=== PATIENT | female | born 1975 | race Caucasian/White ===

== ENCOUNTER → 2018-07-04 | Outpatient (CLI) | payer SELFPAY ==
--- NOTE | 2018-07-04 16:13 | RADIOLOGY REPORT (SQ) ---
EXAM DESCRIPTION: CT HEAD COMBO COMPLETED DATE/TIME: 07/04/2018 2:35 pm REASON FOR STUDY: LEFT BREAST CANCER C50.412 MALIG NEOPLASM OF UPPER-OUTER QUADRANT OF LEFT FEMAL COMPARISON: None. TECHNIQUE: Axial images acquired through the brain without and with intravenous contrast. Images re viewed with bone, brain and subdural windows. Additional sagittal and coronal reconstructions were g enerated. Images stored on PACS. All CT scanners at this facility use dose modulation, iterative reconstruction, and/or weight based d osing when appropriate to reduce radiation dose to as low as reasonably achievable (ALARA). [facility]: Dose Right [facility]: CareDose [facility]: Dose Right [facility]: Teradose 4D [facility]: FortaTrust CONTRAST TYPE AND DOSE: contrast/concentration: Isovue 350.00 mg/ml; Total Contrast Delivered: 50.0 ml; Total Saline Delivered: 55.0 ml RENAL FUNCTION: None required. The patient is less than 50 years old. RADIATION DOSE: CT Rad equipment meets quality standard of care and radiation dose reduction techniq ues were employed. CTDIvol: 48.7 - 48.7 mGy. DLP: 2008 mGy-cm.. LIMITATIONS: None. FINDINGS: VENTRICLES: Normal size and contour. CEREBRUM: No masses. No hemorrhage. No midline shift. Normal thomas/white matter differentiation. No ev idence for acute infarction. No enhancing lesions. CEREBELLUM: No masses. No hemorrhage. No alteration of density. No evidence for acute infarction. No enhancing lesions. EXTRA-AXIAL SPACES: No fluid collections. No enhancing lesions. ORBITS AND GLOBE: No intra- or extraconal masses. Normal contour of globe without masses. CALVARIUM: No fracture. PARANASAL SINUSES: No fluid or mucosal thickening. SOFT TISSUES: No mass or hematoma. OTHER: No other significant finding. IMPRESSION: NORMAL BRAIN CT WITHOUT AND WITH CONTRAST. EVIDENCE OF ACUTE STROKE: NO. TECHNICAL DOCUMENTATION: JOB ID: [id number] Quality ID # [id number]: Final reports with documentation of one or more dose reduction techniques (e.g., Au tomated exposure control, adjustment of the mA and/or kV according to patient size, use of iterative reconstruction technique) 2010 [employer]- All Rights Reserved Reading location - IP/workstation name: [email or web address]
== END ==
LOC: RAD 13:52
PROVIDERS: ATTEND Internal Medicine Hematology & Oncology
DX: C50.412 Malignant neoplasm of upper-outer quadrant of left female breast (principal)
CPT/HCPCS: 70470

== ENCOUNTER 2018-07-12 10:44 | Day surgery (SDC) | payer SELFPAY ==
[2018-07-08 11:09] LABS: HEMATOCRIT 41.8 % (36.0-47.0); HEMOGLOBIN 14.8 g/dL (12.0-15.5); MEAN CORPUSCULAR HEMOGLOBIN 30.6 pg (27.0-33.4); MEAN CORPUSCULAR HGB CONC 35.3 g/dL (32.0-36.0); MEAN CORPUSCULAR VOLUME 87 fl (80-97); PLATELET COUNT 143 10^3/uL (150-450); RED BLOOD COUNT 4.81 10^6/uL (3.72-5.28)
[2018-07-08 11:39] LABS: ANION GAP 12 (5-19); BLOOD UREA NITROGEN 6 mg/dL (7-20); CALCIUM 9.1 mg/dL (8.4-10.2); CARBON DIOXIDE 27 mmol/L (22-30); CHLORIDE 103 mmol/L (98-107); GLUCOSE 101 mg/dL (75-110); SODIUM 141.9 mmol/L (137-145)
[~2018-07-12 10:44] MED LIST: CEFAZOLIN 1 GM/D5W RTU 1 GM/50 ML RTUPB IV ONE; CEFAZOLIN 1 GM/D5W RTU 1 GM/50 ML RTUPB IV PRN; LACTATED RINGERS 1000 ML IV PRN; LIDOCAINE 4% TRANSPARENT DRESSING 5 GM KIT ONE; LIDOCAINE 4% TRANSPARENT DRESSING 5 GM KIT TP PRN; SUCCINYLCHOLINE CHLORIDE INJ 200 MG/10 ML VIAL ONE
--- NOTE | 2018-07-12 12:38 | RADIOLOGY REPORT (SQ) ---
EXAM DESCRIPTION: NM LYMPHATICS/LYMPH GLANDS COMPLETED DATE/TIME: 07/12/2018 12:26 pm REASON FOR STUDY: BREAST CANCER C50.912 MALIGNANT NEOPLASM OF UNSPECIFIED SITE OF LEFT FEMAL Z80.3 FAMILY HISTORY OF MALIGNANT NEOPLASM OF BREAST COMPARISON: None. RADIONUCLIDE AND DOSE: 612 microcuries TC-99m tilmanocept - [employer]. The route of agent administration: Subcutaneous in the skin. TECHNIQUE: The skin of the left breast was prepped in sterile fashion. The radiopharmaceutical was administered in equally divided doses in the periareolar breast. LIMITATIONS: None. FINDINGS: Images demonstrate activity at the injection site. There is also activity near the left a xilla secondary to a sentinel lymph node. IMPRESSION: ADMINISTRATION OF RADIOPHARMACEUTICAL FOR SENTINEL LYMPH NODE EVALUATION. TECHNICAL DOCUMENTATION: JOB ID: [id number] [employer]- All Rights Reserved Reading location - IP/workstation name: [email or web address]
[2018-07-12] MEDS ORDERED: SCOPOLAMINE HYDROBROMIDE 1.5 MG PATCH.TD72 ONE (13:03)
[2018-07-12] MEDS ORDERED: ALBUTEROL SULFATE 0.083% NEB 2.5 MG/3 ML AMPUL NEB ONE (13:12)
[2018-07-12] MEDS ORDERED: RINGERS SOLUTION,LACTATED 1,000 ML IV ONE (13:15)
[2018-07-12] MEDS ORDERED: MIDAZOLAM 2 MG/2 ML INJ ONE ×2 (13:49→14:17)
[2018-07-12] MEDS ORDERED: EPHEDRINE SULFATE INJ 50 MG/1 ML AMPULE ONE (14:17)
[2018-07-12] MEDS ORDERED: DEXAMETHASONE SOD PHOSPHATE INJ 4 MG/1 ML VIAL ONE (14:17)
[2018-07-12] MEDS ORDERED: ACETAMINOPHEN 1,000 MG/100 ML RTUPB IV ONE (14:17)
[2018-07-12] MEDS ORDERED: ONDANSETRON HCL INJ/PF 4 MG/2 ML SDV ONE (14:17)
[2018-07-12] MEDS ORDERED: PROPOFOL INJ 200 MG/20 ML VIAL IV ONE (14:17)
[2018-07-12] MEDS ORDERED: FENTANYL CITRATE INJ/PF 100 MCG/2 ML AMPUL ONE (14:17)
[2018-07-12] MEDS: LIDOCAINE 1%/EPINEPHRINE INJ 20 ML VIAL ONE ×2 (14:40→15:19)
[2018-07-12] MEDS: MICROFIBRILLAR COLLAGEN 1 GM PACK ONE ×2 (14:40→15:19)
[2018-07-12] MEDS: METHYLENE BLUE 50 MG/10 ML AMPULE ONE ×2 (14:41→15:19)
[2018-07-12] MEDS ORDERED: DIPHENHYDRAMINE HCL 50 MG/ML VIAL IV PRN (15:24)
[2018-07-12] MEDS ORDERED: OXYCODONE-ACETAMINOPHEN 5-325 MG TABLET PO PRN ×2 (15:24)
[2018-07-12] MEDS ORDERED: FENTANYL CITRATE INJ/PF 100 MCG/2 ML AMPUL IV PRN ×3 (15:24)
[2018-07-12] MEDS ORDERED: MEPERIDINE HCL/PF INJ 25 MG/1 ML DISP.SYRIN IV PRN (15:24)
[2018-07-12] MEDS ORDERED: PROMETHAZINE HCL INJ 25 MG/1 ML VIAL IV PRN ×2 (15:24)
[2018-07-12] MEDS ORDERED: ONDANSETRON HCL INJ/PF 4 MG/2 ML SDV IV PRN (15:24)
[2018-07-12] MEDS: FENTANYL CITRATE INJ/PF 100 MCG/2 ML AMPUL ONE ×2 (16:52→16:57)
--- NOTE | 2018-07-12 16:55 | Discharge Summary ---
Discharge Summary (SDC) - Discharge Final Diagnosis: Triple negative left breast carcinoma Date of Surgery: 07/12/18 Discharge Date: 07/12/18 Condition: Good Treatment or Instructions: Wear supportive bra; prescription on chart for pain medication; may shower in 48 hours; follow-up with Dr. [facility] in 1-2 weeks. Referrals: VETO PUCKETT MD [Primary Care Provider] - Discharge Diet: As Tolerated Discharge Activity: Activity As Tolerated Home Care Assistance: None Needed Report the Following to Your Physician Immediately: Shortness of Breath, Increase in Pain, Fever over 101 Degrees
[2018-07-12] MEDS: HYDROMORPHONE HCL INJ/PF 2 MG/ML AMPULE ONE ×6 (17:00→17:25)
--- NOTE | 2018-07-12 17:03 | Operative Report ---
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 [place] lymph node biopsy left axilla 2. 2. Ultrasound directed left breast lumpectomy including anterior margin sent separately. 3. Interpretation of intraoperative specimen radiograph SURGEON: LENA LARIOS ANESTHESIA: GA TISSUE REMOVED OR ALTERED: [place] lymph nodes left axilla x2; left breast lump with tumor and clip marker; anterior lumpectomy margin COMPLICATIONS: None ESTIMATED BLOOD LOSS: Scant INTRAOPERATIVE FINDINGS: See below PROCEDURE: The patient was seen in the preop holding area after undergoing lymphoscintigraphy of the left axilla. She was found to have increased activity in the left axilla by bedside neoprobe scanning. She was taken to the main operating room where general anesthesia was induced. Left arm was abducted. As part of the dual mapping technique, we injected 2-1/ 2 cc of dilute methylene blue into the left breast at the o'clock position areolar border. Left breast was massaged. The left breast and left axilla were prepped and draped in sterile fashion. Surgical plan surgical timeout were conducted. Ultrasonography of the left breast confirmed the well-circumscribed 2 cm tumor in the upper outer quadrant of the left breast, approximately 3-4 cm from the nipple at the 2 o'clock position. Clip marker retained within the tumor. We proceeded with sentinel lymph node biopsy first. Skin was Maren times 1% plain lidocaine, 3 cm incision was made in the low axilla and sentinel node harvesting executed. 2 sentinel lymph nodes were removed both level 1 both hot and blue. The first lymph node had an in vivo count of 15,426 and an ex vivo count of 8814. A sentinel hot blue lymph node with associated non-hot but blue lymph node was excised with an in vivo count of 3284 and an ex vivo count of 2925. Background counts were negligible. We felt the axillary sentinel lymph node portion of the procedure was complete. We planned our incision for left breast lumpectomy using ultrasound guidance. Skin was Maren times 1% plain lidocaine, a 4+ centimeter incision was made over the palpable mass, and a reasonable sized lumpectomy specimen was taken from just under the skin all the way down to the deep breast tissue using intraoperative ultrasonography real-time as a guide to the dissection. The lumpectomy specimen was removed from the left breast, oriented with a short suture in the superior position and a long suture in the lateral position. Imaged with the specimen radiograph machine in the operating room and found to contain the tumor, and the clip. Of note radiology had gone home for the day; pathology had gone home for the day. I therefore felt that given the proximity of the tumor to the anterior skin surface, that excising the initial lumpectomy incision, with a small portion of cutaneous tissue would be appropriate as an anterior margin. This in fact was affected using a #15 blade. This was essentially a [place] tribe of skin. It was oriented on a blue pad with the lateral margin marked laterally and the medial margin marked medially. Skin was oriented in a couple direction consistent with the vertical lumpectomy made on the patient. All specimens were sent for permanent analysis. Wounds checked for hemostasis, and there was no need for cauterization. Avitene was placed in the recesses of both wounds and wounds closed with 3-0 Vicryl, benzoin and Steri-Strips. Patient tolerated procedure well, extubated, taken recovery room stable condition.
[2018-07-12] MEDS ORDERED: KETOROLAC TROMETHAMINE INJ/PF 30 MG/1 ML SDV ONE (17:49)
[2018-07-12] MEDS ORDERED: OXYCODONE-ACETAMINOPHEN 5-325 MG TABLET ONE (18:30)
[2018-07-12 20:27] VITALS: BP 114/72
--- NOTE | 2018-07-15 15:30 | RADIOLOGY REPORT (SQ) ---
EXAM DESCRIPTION: BREAST SPECIMEN COMPLETED DATE/TIME: 07/12/2018 5:06 pm REASON FOR STUDY: LEFT BREAST LUMPECTOMY C50.912 MALIGNANT NEOPLASM OF UNSPECIFIED SITE OF LEFT FEM AL Z80.3 FAMILY HISTORY OF MALIGNANT NEOPLASM OF BREAST COMPARISON: None. TECHNIQUE: Specimen radiograph from breast procedure performed in the operating room. LIMITATIONS: None. FINDINGS: Specimen radiograph from breast procedure performed in the operating room. Please see procedure note for details and final pathology. IMPRESSION: Specimen radiograph. TECHNICAL DOCUMENTATION: JOB ID: [id number] Reading location - IP/workstation name: [email or web address]
== END 2018-07-12 19:40 | disposition home or self-care (01) ==
LOC: OROUT 10:44
PROVIDERS: ATTEND Surgery
DX: C50.912 Malignant neoplasm of unspecified site of left female breast (principal); Z80.3 Family history of malignant neoplasm of breast; J45.909 Unspecified asthma, uncomplicated; K21.9 Gastro-esophageal reflux disease without esophagitis; K44.9 Diaphragmatic hernia without obstruction or gangrene; E03.9 Hypothyroidism, unspecified; R63.4 Abnormal weight loss; B19.20 Unspecified viral hepatitis C without hepatic coma; Z79.51 Long term (current) use of inhaled steroids; Z79.4 Long term (current) use of insulin; Z88.8 Allergy status to other drugs, medicaments and biological substances; Z88.5 Allergy status to narcotic agent; Z01.818 Encounter for other preprocedural examination
CPT/HCPCS: 36415; 85027; 80048; 88342 ×2; 88305 ×2; 88307 ×2; 78195; 94640; 76098; 19301; 38500; A9520; J2250; J0690; J1100; J3010; J3490 ×3; J1885; J1170; J0330; J2405; J2704; J0131; Q9968; 400

== ENCOUNTER 2018-07-21 13:31 | Emergency (ER) | payer SELFPAY ==
[2018-07-21 13:48] VITALS: BP 128/86
== END 2018-07-21 16:08 | disposition left against medical advice (07) ==
LOC: ER 13:31
DX: Z53.21 Procedure and treatment not carried out due to patient leaving prior to being seen by health care provider (principal)

== ENCOUNTER 2018-08-07 06:45 | Day surgery (SDC) | payer MEDICAID ==
[2018-08-07] MEDS ORDERED: CEFAZOLIN 1 GM/D5W RTU 1 GM/50 ML RTUPB IV ONE (06:59)
[2018-08-07] MEDS ORDERED: ACETAMINOPHEN 325 MG TABLET PO PRN (07:06)
[2018-08-07 07:24] LABS: HEMATOCRIT 40.5 % (36.0-47.0); HEMOGLOBIN 14.5 g/dL (12.0-15.5); MEAN CORPUSCULAR HEMOGLOBIN 30.7 pg (27.0-33.4); MEAN CORPUSCULAR HGB CONC 35.8 g/dL (32.0-36.0); MEAN CORPUSCULAR VOLUME 86 fl (80-97); PLATELET COUNT 153 10^3/uL (150-450); RED BLOOD COUNT 4.73 10^6/uL (3.72-5.28); RED CELL DISTRIBUTION WIDTH 12.8 % (11.5-14.0)
[2018-08-07] MEDS ORDERED: LIDOCAINE 1%/EPINEPHRINE INJ 20 ML VIAL ONE (08:36)
[2018-08-07] MEDS ORDERED: MIDAZOLAM 2 MG/2 ML INJ ONE (08:39)
[2018-08-07] MEDS ORDERED: FENTANYL CITRATE INJ/PF 100 MCG/2 ML AMPUL ONE (08:39)
[2018-08-07] MEDS ORDERED: KETOROLAC TROMETHAMINE 60 MG/2 ML SDV ONE (08:39)
[2018-08-07] MEDS ORDERED: PROPOFOL INJ 200 MG/20 ML VIAL IV ONE (08:40)
[2018-08-07] MEDS ORDERED: ACETAMINOPHEN 1,000 MG/100 ML RTUPB IV ONE (08:40)
[2018-08-07] MEDS ORDERED: ONDANSETRON HCL INJ/PF 4 MG/2 ML SDV ONE (08:40)
[2018-08-07] MEDS ORDERED: FENTANYL CITRATE INJ/PF 100 MCG/2 ML AMPUL IV PRN ×3 (09:12)
[2018-08-07] MEDS ORDERED: PROMETHAZINE HCL INJ 25 MG/1 ML VIAL IV PRN ×2 (09:12)
[2018-08-07] MEDS ORDERED: OXYCODONE-ACETAMINOPHEN 5-325 MG TABLET PO PRN ×2 (09:12)
[2018-08-07] MEDS ORDERED: DIPHENHYDRAMINE HCL 50 MG/ML VIAL IV PRN (09:12)
[2018-08-07] MEDS ORDERED: ONDANSETRON HCL INJ/PF 4 MG/2 ML SDV IV PRN (09:12)
[2018-08-07] MEDS ORDERED: MEPERIDINE HCL/PF INJ 25 MG/1 ML DISP.SYRIN IV PRN (09:12)
[2018-08-07] MEDS ORDERED: MEPERIDINE HCL/PF INJ 25 MG/1 ML DISP.SYRIN ONE (09:58)
--- NOTE | 2018-08-07 09:58 | Discharge Summary ---
Discharge Summary (SDC) - Discharge Final Diagnosis: Left breast cancer Date of Surgery: 08/07/18 Discharge Date: 08/07/18 Condition: Stable Treatment or Instructions: PLAN: Wound Care: -You may shower in 48 hours. Leave steri strips (paper bandaids) intact until they fall off on their own. Do not scrub area. Allow warm water/soap to wash over area, pat dry and cover if needed. Pain Management: -You may take Toradol 10mg one pill by mouth every six hours as needed for pain. Follow Up: - You may follow up at [facility] in 7-10 days for evaluation. Call clinic or go to ER if you experience swelling in your neck, difficulty breathing , foul-smelling drainage, or redness surrounding incision site. Call clinic sooner with questions/concerns. Prescriptions: Ketorolac Tromethamine [Toradol 10 mg Tablet] 10 mg PO Q6HP PRN #20 tablet PRN Reason: Referrals: VETO PUCKETT MD [Primary Care Provider] - Discharge Diet: As Tolerated Discharge Activity: Activity As Tolerated Report the Following to Your Physician Immediately: Shortness of Breath, Increase in Pain, Unusual Bleeding, Redness, Swelling, Warmth, Drainage-Foul Smelling
[2018-08-07] MEDS ORDERED: KETOROLAC TROMETHAMINE 10 MG TABLET PO PRN (09:59)
--- NOTE | 2018-08-07 10:10 | Operative Report ---
Operative Report DATE OF SURGERY: 08/07/18 PREOPERATIVE DIAGNOSIS: Triple negative left breast carcinoma, status post left breast lumpectomy and sentinel lymph node biopsy POSTOPERATIVE DIAGNOSIS: Same OPERATION: 1. Focused ultrasound of the neck. 2. Ultrasound directed insertion of single-lumen Vmevfm-g-Zenq catheter right subclavian position. 3. Interpretation of intraoperative fluoroscopy. SURGEON: LENA GR BALL ENDER: FERNANDO TREJO ANESTHESIA: LMAC TISSUE REMOVED OR ALTERED: Scant COMPLICATIONS: None ESTIMATED BLOOD LOSS: 20 cc INTRAOPERATIVE FINDINGS: See below PROCEDURE: The patient was taken from the preop holding area the main operating room where LMAC anesthesia was induced. Arms were tucked at the side, neck and head externally rotated to the left side. The right neck chest and axilla were prepped and draped in sterile fashion. Surgical plan surgical timeout were conducted. Using real-time ultrasound as a guide, the right internal jugular vein was identified, found to be compressible suitable for cannulation. Overlying skin was anesthetized with 1% plain lidocaine. A small incision was made with a #15 blade, and under fluoroscopic guidance, a micro needle and wire was threaded into the vessel. The micro wire did not advance in the usual fashion. We threaded the micro-introducer dilator and sheath over the micro wire and the microwire removed and the 0.035 inch guidewire inserted into the sheath. During this transition, it was apparent that the blood coming from around the wire was arterial, and therefore the procedure was aborted. The wire and sheath were removed uneventfully and gentle pressure held. During this time the patient's peripheral IV access early failed. Anesthesia had to manipulate the Hep-Lock to reestablish successful IV access which was accomplished. Appropriate level of sedation was again achieved. There is no evidence of hematoma in the neck. We felt that we could proceed as planned again accessing the right neck. Using real-time ultrasound again as a guide, a second attempt was made to cannulate the right internal jugular vein. This was successful with the micro needle and wire. A suitable site for placement of port was chosen in the right subclavian position. Skin was anesthetized with 1% plain lidocaine. A 3 cm incision was made with a knife, port pocket developed large enough to accommodate a single-chamber port. Catheter was then trimmed the appropriate length, tunneled between the 2 incisions, attached to the port along with the plastic ring. Under fluoroscopic guidance, real-time, the prone needle was switched over to a conventional 0.030 inch guidewire using the micro-introducer sheath. We now threaded over the guidewire a 9 [place] dilator introducer sheath. Guidewire dilator removed, catheter threaded into the sheath, strip away sheath removed leaving the catheter in good position. The tip of the catheter was in the proximal superior vena cava. Is no kinking of the catheter at the neck. We aspirated and flushed the Iucepd-s-Nvho chamber with heparinized saline. There is no evidence of ectopy or swelling of the neck. Sponge and needle counts are correct. Wounds were felt to be suitable for closure and this was affected using 3-0 Vicryl suture. Sterile dressings were applied with benzoin and Steri-Strips Patient tolerated procedure well. She was taken to recovery in stable condition. Portable x-ray pending time dictation. The physician geriatric nurse assistant, Ms. Frias, provided assistance during this case by: Assisting with retracting tissue, instillation of local anesthesia and closure of skin incisions.
--- NOTE | 2018-08-07 10:46 | RADIOLOGY REPORT (SQ) ---
EXAM DESCRIPTION: CHEST SINGLE VIEW COMPLETED DATE/TIME: 08/07/2018 10:20 am REASON FOR STUDY: Port placement COMPARISON: None. EXAM PARAMETERS: NUMBER OF VIEWS: One view. TECHNIQUE: Single frontal radiographic view of the chest acquired. RADIATION DOSE: NA LIMITATIONS: None. FINDINGS: LUNGS AND PLEURA: No opacities, masses or pneumothorax. No pleural effusion. MEDIASTINUM AND HILAR STRUCTURES: No masses. Contour normal. HEART AND VASCULAR STRUCTURES: Heart normal in size. Normal vasculature. BONES: No acute findings. HARDWARE: Right-sided Port-A-Cath is identified with its tip the level of the superior vena cava P OTHER: No other significant finding. IMPRESSION: Right-sided Port-A-Cath with its tip at the level of the superior vena cava. No pneumot horax is seen. Other findings as noted above TECHNICAL DOCUMENTATION: JOB ID: [id number] [employer]- All Rights Reserved Reading location - IP/workstation name: [email or web address]
--- NOTE | 2018-08-07 10:49 | RADIOLOGY REPORT (SQ) ---
EXAM DESCRIPTION: FLUORO/CV PLACEMENT COMPLETED DATE/TIME: 08/07/2018 10:37 am REASON FOR STUDY: PORTACATH PLCMT RT SIDE ASST WITH FLUORO IN OR C50.912 MALIGNANT NEOPLASM OF UNSP ECIFIED SITE OF LEFT FEMAL COMPARISON: None. FLUOROSCOPY TIME: 2.2 minute 3 images saved to PACS. TECHNIQUE: Intra-operative images acquired during surgical procedure to evaluate progress. NUMBER OF IMAGES: 3 in LIMITATIONS: None. FINDINGS: Fluoroscopic images were obtained during placement of a Port-A-Cath. The tip of the Port- A-Cath is identified at the level of the superior vena cava. Please refer to the surgeon's operative report for additional information IMPRESSION: IMAGE(S) OBTAINED DURING PROCEDURE. COMMENT: Quality ID [id number]: Final reports for procedures using fluoroscopy that document radiation exp osure indices, or exposure time and number of fluorographic images (if radiation exposure indices are not available) Please consult full operative report of the attending physician for description of the procedure. TECHNICAL DOCUMENTATION: JOB ID: [id number] [employer]- All Rights Reserved Reading location - IP/workstation name: [email or web address]
[2018-08-07 11:56] VITALS: BP 100/60
== END 2018-08-07 11:45 | disposition home or self-care (01) ==
LOC: OROUT 06:45
PROVIDERS: ATTEND Surgery
DX: C50.912 Malignant neoplasm of unspecified site of left female breast (principal); Z80.3 Family history of malignant neoplasm of breast; J45.909 Unspecified asthma, uncomplicated; R63.4 Abnormal weight loss; E03.9 Hypothyroidism, unspecified; K21.9 Gastro-esophageal reflux disease without esophagitis; K44.9 Diaphragmatic hernia without obstruction or gangrene; Z88.8 Allergy status to other drugs, medicaments and biological substances; Z88.5 Allergy status to narcotic agent; Z86.19 Personal history of other infectious and parasitic diseases; Z87.891 Personal history of nicotine dependence; Z79.899 Other long term (current) drug therapy
CPT/HCPCS: 36415; 85027; 71045; 77001; 36561; C1769; C1752; C1788; J2250; J0690; J1885; J3010; J3490; J2175; J2405; J2704; J1642; J0131; 532

== ENCOUNTER → 2018-08-12 | Outpatient (CLI) | payer MEDICAID ==
[2018-08-12 11:48] LABS: ABSOLUTE EOSINOPHILS # (AUTO) 0.2 10^3/uL (0.0-0.6); ABSOLUTE LYMPHOCYTES (AUTO) 1.9 10^3/uL (0.5-4.7); ABSOLUTE MONOCYTES (AUTO) 0.4 10^3/uL (0.1-1.4); ABSOLUTE NEUT (AUTO) 2.8 10^3/uL (1.7-8.2); BASOPHILS % (AUTO) 0.3 % (0-2); EOSINOPHILS % (AUTO) 3.7 % (0-6); HEMATOCRIT 37.4 % (36.0-47.0); HEMOGLOBIN 13.2 g/dL (12.0-15.5); LYMPHOCYTES % (AUTO) 35.6 % (13-45); MEAN CORPUSCULAR HEMOGLOBIN 30.7 pg (27.0-33.4); MEAN CORPUSCULAR HGB CONC 35.4 g/dL (32.0-36.0); MEAN CORPUSCULAR VOLUME 87 fl (80-97); MONOCYTES % (AUTO) 7.6 % (3-13); PLATELET COUNT 149 10^3/uL (150-450); RED BLOOD COUNT 4.31 10^6/uL (3.72-5.28); RED CELL DISTRIBUTION WIDTH 12.9 % (11.5-14.0); SEGMENTED NEUTROPHILS % (AUTO) 52.8 % (42-78); TOTAL CELLS COUNTED % (AUTO) 100 %; WHITE BLOOD COUNT 5.3 10^3/uL (4.0-10.5)
--- NOTE | 2018-08-12 15:55 | RADIOLOGY REPORT (SQ) ---
EXAM DESCRIPTION: NM MUGA REST COMPLETED DATE/TIME: 08/12/2018 3:36 pm REASON FOR STUDY: Z08 ENCNTR FOR FOLLOW-UP EXAM AFTER TRTMT FOR MALIGNANT NEOPLASM Z08 ENCNTR FOR F OLLOW-UP EXAM AFTER TRTMT FOR MALIGNANT NEOP COMPARISON: None. RADIONUCLIDE AND DOSE: 26.3 mCi technetium 99m labeled red blood cells The route of agent administration: Intravenous TECHNIQUE: Following administration of the radionuclide, gated images of the heart are obtained in t hree projections. Left ventricular functional analysis performed. LIMITATIONS: None. FINDINGS: LEFT VENTRICULAR FUNCTION: EJECTION FRACTION: 76%. END-DIASTOLIC VOLUME: 104 mL. END-SYSTOLIC VOLUME: 23 mL. WALL MOTION: No focal wall motion abnormalities. OTHER: No other significant finding. IMPRESSION: NORMAL CARDIAC MUGA STUDY. NORMAL LEFT VENTRICULAR EJECTION FRACTION OF 76%. TECHNICAL DOCUMENTATION: JOB ID: [id number] [email or web address] All Rights Reserved Reading location - IP/workstation name: [email or web address]
== END ==
LOC: RAD 14:45
PROVIDERS: ATTEND Internal Medicine Hematology & Oncology
DX: Z08 Encounter for follow-up examination after completed treatment for malignant neoplasm (principal); C50.412 Malignant neoplasm of upper-outer quadrant of left female breast; Z13.6 Encounter for screening for cardiovascular disorders
CPT/HCPCS: 85025; 78472; A9560; Q9969; 36415

== ENCOUNTER 2018-10-25 12:27 | Emergency (ER) | payer MEDICAID ==
[2018-10-25] MEDS ORDERED: ASPIRIN 81 MG TABLET, CHEWABLE PO ONE (13:07)
--- NOTE | 2018-10-25 13:10 | ER Document Report ---
ED Medical Screen (RME) - General Chief Complaint: Chest Pain Stated Complaint: CHEST PAIN,NAUSEA,SHAKY Time Seen by Provider: 10/25/18 13:00 Primary Care Provider: TIARRA BURTON MD [Primary Care Provider] - Follow up as needed Information source: Patient Notes: 43-year-old female presents emergency department complaints of chest pain for the last 2 weeks. She describes it as a sharp and stabbing sensation that turns into a squeeze. She denies any radiation of the pain. No alleviating or exacerbating factors. Patient states that her last chemo treatment was on Sunday. Her doctor is been changing of the chemo medications. She is not sure if she is having a side effect to the medications or something else. She states that this morning she is been having nausea, feeling shaky, hot, flushed along with the chest pain. She contacted 's office and was told to go to the ED for evaluation. Patient denies any hypertension, hyperlipidemia, diabetes, coronary artery disease. She states that she does have a family history of coronary artery disease. She denies any recent travel, recent surgery, calf pain, calf swelling. I have greeted and performed a rapid initial assessment of this patient. A comprehensive ED assessment and evaluation of the patient, analysis of test results and completion of the medical decision making process will be conducted by additional ED providers. PHYSICAL EXAMINATION: GENERAL: Ill appearing. HEAD: Atraumatic, normocephalic. EYES: Pupils equal round extraocular movements intact, conjunctiva are normal. ENT: Nares patent NECK: Normal range of motion LUNGS: No respiratory distress Musculoskeletal: Normal range of motion NEUROLOGICAL: Normal speech, normal gait. PSYCH: Normal mood, normal affect. SKIN: Warm, Dry, normal turgor, no rashes or lesions noted. TRAVEL OUTSIDE OF THE [place] IN LAST 30 DAYS: No - Related Data Allergies/Adverse Reactions: morphine Allergy (Verified 10/25/18 12:28) metoclopramide [From Reglan] Adverse Reaction (Verified 10/25/18 12:28) Past Medical History - Past Medical History Cardiac Medical History: Denies: Hx Coronary Artery Disease, Hx Heart Attack, Hx Hypertension Pulmonary Medical History: Reports: Hx Asthma - MILD Denies: Hx Bronchitis, Hx COPD, Hx Pneumonia Neurological Medical History: Denies: Hx Cerebrovascular Accident, Hx Seizures Musculoskeltal Medical History: Reports Hx Arthritis - ANA MARIA KNEES/SHOULDERS BACK - Immunizations Hx Diphtheria, Pertussis, Tetanus Vaccination: Yes History of Influenza Vaccine for 06/2017 - 11/2017 Season: No Physical Exam - Vital signs Vitals: Temp Pulse Resp BP Pulse Ox 98.0 F 87 18 118/81 100 10/25/18 12:37 10/25/18 12:37 10/25/18 12:37 10/25/18 12:37 10/25/18 12:37 Course - Vital Signs Vital signs: Temp Pulse Resp BP Pulse Ox 98.0 F 87 18 118/81 100 10/25/18 12:37 10/25/18 12:37 10/25/18 12:37 10/25/18 12:37 10/25/18 12:37 Doctor's Discharge - Discharge Referrals: TIARRA BURTON MD [Primary Care Provider] - Follow up as needed
--- NOTE | 2018-10-25 14:00 | EKG REPORT ---
SEVERITY:- NORMAL ECG - SINUS RHYTHM : Confirmed by: Robbie Madrid 25-Oct-2018 13:59:56
[2018-10-25 14:21] LABS: ABSOLUTE LYMPHOCYTES (AUTO) 1.8 10^3/uL (0.5-4.7); ABSOLUTE MONOCYTES (AUTO) 0.6 10^3/uL (0.1-1.4); ABSOLUTE NEUT (AUTO) 4.1 10^3/uL (1.7-8.2); BASOPHILS % (AUTO) 0.4 % (0-2); EOSINOPHILS % (AUTO) 0.5 % (0-6); HEMATOCRIT 35.1 % (36.0-47.0); HEMOGLOBIN 12.4 g/dL (12.0-15.5); LYMPHOCYTES % (AUTO) 27.3 % (13-45); MEAN CORPUSCULAR HEMOGLOBIN 31.8 pg (27.0-33.4); MEAN CORPUSCULAR HGB CONC 35.3 g/dL (32.0-36.0); MEAN CORPUSCULAR VOLUME 90 fl (80-97); MONOCYTES % (AUTO) 9.2 % (3-13); PLATELET COUNT 152 10^3/uL (150-450); RED CELL DISTRIBUTION WIDTH 16.5 % (11.5-14.0); SEGMENTED NEUTROPHILS % (AUTO) 62.6 % (42-78); TOTAL CELLS COUNTED % (AUTO) 100 %; WHITE BLOOD COUNT 6.5 10^3/uL (4.0-10.5)
--- NOTE | 2018-10-25 14:23 | RADIOLOGY REPORT (SQ) ---
EXAM DESCRIPTION: CHEST SINGLE VIEW COMPLETED DATE/TIME: 10/25/2018 2:02 pm REASON FOR STUDY: chest pain COMPARISON: 08/07/2018 EXAM PARAMETERS: NUMBER OF VIEWS: One view. TECHNIQUE: Single frontal radiographic view of the chest acquired. RADIATION DOSE: NA LIMITATIONS: None. FINDINGS: LUNGS AND PLEURA: No opacities, masses or pneumothorax. No pleural effusion. MEDIASTINUM AND HILAR STRUCTURES: No masses. Contour normal. HEART AND VASCULAR STRUCTURES: Heart normal in size. Normal vasculature. BONES: No acute findings. HARDWARE: None in the chest. OTHER: Stable position of right-sided port. IMPRESSION: NO ACUTE RADIOGRAPHIC FINDING IN THE CHEST. TECHNICAL DOCUMENTATION: JOB ID: [id number] [employer]- All Rights Reserved Reading location - IP/workstation name: [email or web address]
[2018-10-25 14:30] LABS: ALANINE AMINOTRANSFERASE 25 U/L (9-52); ALBUMIN 4.3 g/dL (3.5-5.0); ALKALINE PHOSPHATASE 42 U/L (38-126); ANION GAP 10 (5-19); ASPARTATE AMINO TRANSFERASE 17 U/L (14-36); BILIRUBIN,DIRECT 0.2 mg/dL (0.0-0.4); BILIRUBIN,TOTAL 0.8 mg/dL (0.2-1.3); BLOOD UREA NITROGEN 11 mg/dL (7-20); CALCIUM 9.1 mg/dL (8.4-10.2); CARBON DIOXIDE 27 mmol/L (22-30); CHLORIDE 106 mmol/L (98-107); GLUCOSE 88 mg/dL (75-110); SODIUM 142.8 mmol/L (137-145)
[2018-10-25] MEDS ORDERED: ONDANSETRON HCL INJ/PF 4 MG/2 ML SDV IV ONE (18:57)
[2018-10-25] MEDS ORDERED: FAMOTIDINE 20 MG TABLET PO ONE (20:01)
[2018-10-25] MEDS ORDERED: LIDOCAINE 2% VISCOUS SOLN 20 ML UDCUP PO ONE (20:01)
[2018-10-25] MEDS ORDERED: SUCRALFATE 1 GM TABLET PO ONE (20:01)
[2018-10-25] MEDS ORDERED: MAG HYDROX/AL HYDROX/SIMETH SUSP 30 ML UDCUP PO ONE (20:01)
[2018-10-25] MEDS ORDERED: LORAZEPAM 1 MG TABLET PO ONE (20:04)
--- NOTE | 2018-10-25 20:13 | ER Document Report ---
ED General - General Chief Complaint: Chest Pain Stated Complaint: CHEST PAIN,NAUSEA,SHAKY Time Seen by Provider: 10/25/18 13:00 Primary Care Provider: TIARRA BURTON MD [Primary Care Provider] - Follow up tomorrow Notes: Patient is a 43-year-old female with a past medical history of stage I breast cancer currently on chemotherapy who presents emergency department complaints of chest pain for the last 2 weeks. She describes it as a sharp and stabbing sensation that turns into a squeeze. She denies any radiation of the pain. No alleviating or exacerbating factors. Patient states that her last chemo treatment was on Sunday. She is not sure if she is having a side effect to the medications or something else. She states that this morning she is been having nausea, feeling shaky, hot, flushed along with the chest pain. She contacted 's office and was told to go to the ED for evaluation. Daniella ent denies any hypertension, hyperlipidemia, diabetes, coronary artery disease. She states that she does have a family history of coronary artery disease. She denies any recent travel, recent surgery, calf pain, calf swelling. TRAVEL OUTSIDE OF THE [place] IN LAST 30 DAYS: No - Related Data Allergies/Adverse Reactions: morphine Allergy (Verified 10/25/18 12:28) metoclopramide [From Reglan] Adverse Reaction (Verified 10/25/18 12:28) Past Medical History - General Information source: Patient - Social History Smoking Status: Never Smoker Frequency of alcohol use: None Drug Abuse: None Lives with: Family Family History: Reviewed & Not Pertinent Patient has suicidal ideation: No Patient has homicidal ideation: No - Past Medical History Cardiac Medical History: Denies: Hx Coronary Artery Disease, Hx Heart Attack, Hx Hypertension Pulmonary Medical History: Reports: Hx Asthma - MILD Denies: Hx Bronchitis, Hx COPD, Hx Pneumonia Neurological Medical History: Denies: Hx Cerebrovascular Accident, Hx Seizures Renal/ Medical History: Denies: Hx Peritoneal Dialysis Musculoskeletal Medical History: Reports Hx Arthritis - ANA MARIA KNEES/SHOULDERS BACK Past Surgical History: Reports: Hx Appendectomy, Hx Breast Surgery - left lumpectomy and 4 lymph nodes removed, Hx Cholecystectomy, Hx Gynecologic Surgery - partial hysterectomy, Hx Orthopedic Surgery - left wrist, shoulder, bilateral knee - Immunizations Hx Diphtheria, Pertussis, Tetanus Vaccination: Yes Review of Systems - Review of Systems Notes: Constitutional: Negative for fever. Positive for hot and cold flashes HENT: Negative for sore throat. Eyes: Negative for visual changes. Cardiovascular: Positive for chest pain. Respiratory: Negative for shortness of breath. Gastrointestinal: Negative for abdominal pain, positive for nausea Genitourinary: Negative for dysuria. Musculoskeletal: Negative for back pain. Skin: Negative for rash. Neurological: Negative for headaches, weakness or numbness. 10 point ROS negative except as marked above and in HPI. Physical Exam - Vital signs Vitals: Temp Pulse Resp BP Pulse Ox 98.0 F 87 18 118/81 100 10/25/18 12:37 10/25/18 12:37 10/25/18 12:37 10/25/18 12:37 10/25/18 12:37 Interpretation: Normal Notes: PHYSICAL EXAMINATION: GENERAL: No acute distress HEAD: Atraumatic, normocephalic. EYES: Pupils equal round and reactive to light, extraocular movements intact, sclera anicteric, conjunctiva are normal. ENT: nares patent, oropharynx clear without exudates. Moist mucous membranes. NECK: Normal range of motion, supple without lymphadenopathy LUNGS: Breath sounds clear to auscultation bilaterally and equal. No wheezes rales or rhonchi. HEART: Regular rate and rhythm without murmurs ABDOMEN: Soft, nontender, normoactive bowel sounds. No guarding, no rebound. No masses appreciated. EXTREMITIES: Normal range of motion, no pitting or edema. No cyanosis. NEUROLOGICAL: No focal neurological deficits. Moves all extremities spont aneously and on command. PSYCH: Normal mood, normal affect. SKIN: Warm, Dry, normal turgor, no rashes or lesions noted. Course - Re-evaluation Re-evalutation: 10/25/18 20:07 Presentation of an overall well-appearing 43-year-old female actively receiving chemotherapy with complaints of multiple constitutional symptoms including f eeling hot, cold, shaking, nauseated and diaphoretic with intermittent spasming chest pain. Her evaluation is quite benign. No focal findings on examination. 2 troponins 4 hours apart negative. Chest x-ray clear. EKG unremarkable. Blood counts within acceptable limits. Chemistries completely unremarkable. Patient's history does seem to be most consistent with more of an esophageal spasm or gastroduodenitis type picture. This would likewise fit with a side effect profile of the chemotherapeutic agents that the patient is receiving. I did discuss this case with the patient's oncologist Dr. Chu who is in agreement. Very low clinical suspicion of acute pulmonary embolus as patient d enies any shortness of breath, pleuritic pain, has no unilateral leg swelling, no tachycardia or hypoxia. Although acknowledged that she has a risk factor of cancer actively on chemotherapy given the absence of any clinical features to suggest this diagnosis I do not believe proceeding with CTA is appropriate. Patient is in agreement with that. Patient will be started on H2 blockers, Carafate, nausea medications as needed. I did discuss with the patient starting anxiolysis per recommendations of Dr. Chu but the patient did decline. At this time will discharge with return precautions and follow-up recommendations. Verbal discharge instructions given a the bedside and opportunity for questions given. Medication warnings reviewed. Patient is in agreement with this plan and has verbalized understanding of return precautions and the need for primary care follow-up in the next 24-72 hours. - Vital Signs Vital signs: Temp Pulse Resp BP Pulse Ox 98.2 F 87 10 L 107/94 H 100 10/25/18 20:01 10/25/18 12:37 10/25/18 20:01 10/25/18 20:01 10/25/18 20:01 - Laboratory Result Diagrams: 10/25/18 13:59 10/25/18 13:59 Laboratory results interpreted by me: 10/25/18 13:59 Hct 35.1 L RDW 16.5 H - Diagnostic Test Radiology reviewed: Image reviewed, Reports reviewed Radiology results interpreted by me: 10/25/18 20:09 Chest x-ray: No acute infiltrate or pneumothorax - EKG Interpretation by Me Additional EKG results interpreted by me: 10/25/18 20:10 Sinus rhythm, rate 88. No ST elevations or depressions. QTC is 426. Discharge - Discharge Clinical Impression: Chest discomfort, Chills, Nausea Condition: Stable Disposition: HOME, SELF-CARE Additional Instructions: Your symptoms appear to be most likely related to the chemotherapy that you are receiving. Your labs, chest x-ray and EKG are all reassuring today. We are trying medications which may help with some the symptoms that you are having which could be related to your esophagus and intestines. Please take famotidine 40 mg in the morning and at night. Take Carafate prior to meals. Please follow-up with your oncologist within the next 24-48 hours. Return if you develop worsening of your symptoms, pass out, develop a fever of greater than 100.4 F, develop difficulty breathing, pain with breathing, began coughing bloo d, or have any symptoms that are worrisome to you. Prescriptions: Famotidine 40 mg PO BID #60 tablet Sucralfate [Carafate 1 gm Tablet] 1 gm PO ACHS #120 tablet Referrals: TIARRA BURTON MD [Primary Care Provider] - Follow up tomorrow
[2018-10-25 20:28] VITALS: BP 107/94
== END 2018-10-25 20:34 | disposition home or self-care (01) ==
LOC: ER 12:27
DX: R07.9 Chest pain, unspecified (principal); R68.83 Chills (without fever); R25.2 Cramp and spasm; R11.0 Nausea; R23.2 Flushing; R61 Generalized hyperhidrosis; J45.909 Unspecified asthma, uncomplicated; C50.919 Malignant neoplasm of unspecified site of unspecified female breast; Z79.899 Other long term (current) drug therapy; Z82.49 Family history of ischemic heart disease and other diseases of the circulatory system; Z88.5 Allergy status to narcotic agent
CPT/HCPCS: 93005; 99284; 96374; 36415; 85025; 80053; 84484; 71045; 93010; J3490 ×4; J2405

== ENCOUNTER → 2019-12-11 | Outpatient (CLI) | payer MEDICAID ==
--- NOTE | 2019-12-11 16:45 | ER RDC ASSESSMENT REPORT ---
Intake - In the Last 14 days Have you traveled outside [place]?: No Have you been in close contact with someone CONFIRMED: No Worked in Healthcare?: No - Symptoms Subjective Fever([place] feverish): Yes Chills: Yes Muscule Aches: Yes Runny Nose: No Sore Throat: Yes Cough (New or worsening chronic cough): Yes Shortness of breath: No Nausea or Vomiting: No Headache: Yes Abdominal Pain: No Diarrhea(3 or more loose stools in last 24 hours): Yes - Do you have any of the following Chronic lung disease: Asthma or emphysema or COPD: Yes Chronic Lung Disease Comment: asthma Cystic Fibrosis: No Diabetes: No High Blood Pressure: No Cardiovascular Disease: No Chronic Kidney Disease: No Chronic Liver Disease: Yes Chronic Liver Disease Comment: hep C, ROOT Chronic blood disorder like Sickle Cell Disease: Yes Chronic Blood Disorder Comment: cancer-chemo 01/2019 Weak immune system due to disease or medication: Yes Neurologic condition that limits movement: No Developmental delay - Moderate to Severe: No - Objective Temperature: 96.7 F Pulse Rate: 85 Respiratory Rate: 20 Blood Pressure: 143/89 O2 Sat by Pulse Oximetry: 98 Objective: Given above, testing performed: If Testing Performed: Test Specimen Type Sent to General - General Information source: Patient Notes: Patient presents with upper respiratory symptoms and concerned about possible covid 19 exposure. - HPI Associated symptoms: Nonproductive cough, Fever. denies: Shortness of breath Exacerbated by: Denies Relieved by: Denies - Related Data Allergies/Adverse Reactions: morphine Allergy (Verified 10/25/18 12:28) metoclopramide [From Reglan] Adverse Reaction (Verified 10/25/18 12:28) Past Medical History - General Information source: Patient - Social History Smoking Status: Former Smoker Family History: Reviewed & Not Pertinent - Past Medical History Cardiac Medical History: Denies: Hx Coronary Artery Disease, Hx Heart Attack, Hx Hypertension Pulmonary Medical History: Reports: Hx Asthma - MILD Denies: Hx Bronchitis, Hx COPD, Hx Pneumonia Neurological Medical History: Denies: Hx Cerebrovascular Accident, Hx Seizures Renal/ Medical History: Denies: Hx Peritoneal Dialysis GI Medical History: Reports: Other - Hep C, Root Musculoskeletal Medical History: Reports Hx Arthritis - ANA MARIA KNEES/SHOULDERS BACK Past Surgical History: Reports: Hx Appendectomy, Hx Breast Surgery - left lumpectomy and 4 lymph nodes removed, Hx Cholecystectomy, Hx Gynecologic Surgery - partial hysterectomy, Hx Orthopedic Surgery - left wrist, shoulder, bilateral knee Physical Exam - General General appearance: Appears well, Alert In distress: None Notes: PHYSICAL EXAMINATION: GENERAL: Well-appearing and in no acute distress. HEAD: Atraumatic, normocephalic. EYES: sclera anicteric, conjunctiva are normal. ENT: nares patent. Moist mucous membranes. NECK: Normal range of motion, supple LUNGS: CTAB and equal. No wheezes rales or rhonchi. HEART: Regular rate and rhythm without murmurs NEUROLOGICAL: Normal speech. Normal gait. PSYCH: Normal mood, normal affect. SKIN: Warm, Dry, normal turgor Diagnostic Results Laboratory Results: Patient's rapid strep and influenza test both negative. Patient Education/Counseling Counseling/Education: Patient presents with upper respiratory symptoms worrisome for possible Covid 19. Patient does not have emergency worring symptoms such as difficulty breathing, shortness of breath, chest pain, pressure, confusion or cyanosis. Patient appears suitable for discharge. Patient's vital signs are stable and patient is nontoxic in appearance. Good return precautions have been discussed with patient, patient verbalized understanding and is agreeable with discharge plan of care at this time. Patient was provided with discharge instructions including: As a person under investigation for Covid 19, the [place] department of Health and Human Services, division of public health advises you to adhere to the following guidance until your test results are reported to you. If your test result is positive, you will receive additional information from your provider and your local health department at that time. Remain at home until you are cleared by the health provider or public health authorities. Keep a log of visitors to your home, notify any visitors to your home of your isolation status. If you plan to move to a new address or leave the county, notify the local health department in your County. Call your doctor or seek care if you have an urgent medical need. Before seeking medical care, call ahead to get instructions from the provider before arriving at the medical office clinic or hospital. Notify them that you are being tested for the virus that causes Covid 19 so that arrangements can be made, as necessary, to prevent transmission to others in the healthcare setting. Next, notify the local health department in your county. If a medical emergency arises and you need to call 911, inform the first responders that you are being tested for the virus that causes Covid 19. Next, notify the local health department in your county. RDC Discharge - Discharge Clinical Impression: covid 19 screening Upper respiratory infection Qualifiers: URI type: unspecified URI Qualified Code(s): J06.9 - Acute upper respiratory infection, unspecified Condition: Stable Disposition: Home; Selfcare
[2019-12-11 17:10] VITALS: BP 143/89
[2019-12-11 17:39] LABS: A TYPE INFLUENZA AG NEGATIVE (NEGATIVE); B INFLUENZA AG NEGATIVE (NEGATIVE)
== END ==
LOC: RDC 16:09
PROVIDERS: ATTEND Nurse Practitioner Family
DX: Z20.828 Contact with and (suspected) exposure to other viral communicable diseases (principal)
CPT/HCPCS: 87070; 87635; 87804; 87880

== ENCOUNTER → 2020-06-14 | Outpatient (CLI) | payer MEDICAID ==
--- NOTE | 2020-06-14 16:27 | RADIOLOGY REPORT (SQ) ---
EXAM DESCRIPTION: MRI LUMBAR SPINE WITHOUT IMAGES COMPLETED DATE/TIME: 06/14/2020 3:54 pm REASON FOR STUDY: M54.5 LOW BACK PAIN M54.5 LOW BACK PAIN COMPARISON: None. TECHNIQUE: Sagittal and Axial imaging includes T1, T2, STIR and gradient echo sequences. Coronal T2/ HASTE imaging. LIMITATIONS: None. FINDINGS: VISUALIZED UPPER ABDOMEN: Limited evaluation. No acute or suspicious findings suggested. SEGMENTATION: No transitional anatomy. The lowest well-developed disc space is labeled L5-S1. ALIGNMENT: Anatomic. VERTEBRAE: Intact. BONE MARROW: Normal. No marrow replacement or reactive changes. DISC SIGNAL: Normal. No significant abnormal signal or loss of height. POSTERIOR ELEMENTS: Generally intact. No pars defect evident. HARDWARE: None in the spine. CORD AND CONUS: Normal in size and signal intensity. Conus at the L1 level. SOFT TISSUES: No aortic aneurysm seen. No bulky retroperitoneal adenopathy or mass. No paraspinal mas s or fluid. L1-L2: No significant spinal stenosis or exit foraminal stenosis. L2-L3: No significant spinal stenosis or exit foraminal stenosis. L3-L4: No significant spinal stenosis or exit foraminal stenosis. L4-L5: No significant spinal stenosis or exit foraminal stenosis. L5-S1: No significant spinal stenosis or exit foraminal stenosis. LOWER THORACIC: Incompletely imaged. No stenosis seen. SACRUM: Visualized upper sacrum intact. OTHER: No other significant findings. IMPRESSION: NORMAL MRI LUMBAR SPINE. TECHNICAL DOCUMENTATION: JOB ID: [id number] [email or web address]- All Rights Reserved Reading location - IP/workstation name: [email or web address]
== END ==
LOC: RAD 15:07
PROVIDERS: ATTEND Physician Assistant
DX: M54.5 Low back pain (principal)
CPT/HCPCS: 72148